=== PATIENT | female | born 1995 | race Caucasian/White ===

== ENCOUNTER 2017-11-14 19:25 | Inpatient (IN) | payer BC ==
[~2017-11-14] VITALS: Ht 154.9 cm; Wt 57.2 kg
[2017-11-14 20:00] VITALS: BP 120/80
[2017-11-14] MEDS ORDERED: LORazepam Inj 2mg/ml 1ml IV ONE ×2 (20:15→22:45)
[2017-11-14 20:41] LABS: BASOPHILS % (AUTO) 0.4 % (0.0-2.0); EOSINOPHILS % (AUTO) 0.3 % (0.0-3.0); HEMATOCRIT 38.3 % (37.0-47.0); LYMPHOCYTES % (AUTO) 18.1 % (20.0-45.0); MEAN CORPUSCULAR VOLUME 91 FL (80-99); MONOCYTES % (AUTO) 4.4 % (1.0-10.0); NEUTROPHILS % (AUTO) 76.8 % (45.0-75.0); PLATELET COUNT 326 K/UL (150-450); RED BLOOD COUNT 4.23 M/UL (4.20-5.40); RED CELL DISTRIBUTION WIDTH 12.2 % (11.6-14.8); WHITE BLOOD COUNT 7.7 K/UL (4.8-10.8)
[2017-11-14 21:00] VITALS: BP 130/80
[2017-11-14 21:04] LABS: ANION GAP 13 mmol/L (5-15); BLOOD UREA NITROGEN 8 mg/dL (7-18); CALCIUM 9.5 MG/DL (8.5-10.1); CARBON DIOXIDE 27 MMOL/L (21-32); CHLORIDE 103 MMOL/L (98-107); CREATININE 0.9 MG/DL (0.55-1.30); POTASSIUM 3.6 MMOL/L (3.5-5.1); SODIUM 143 MMOL/L (136-145)
[2017-11-14 21:08] LABS: ALANINE AMINOTRANSFERASE 19 U/L (12-78); ALBUMIN 4.7 G/DL (3.4-5.0); ALBUMIN/GLOBULIN RATIO 1.4 (1.0-2.7); ALKALINE PHOSPHATASE 81 U/L (46-116); ASPARTATE AMINO TRANSFERASE 26 U/L (15-37); BILIRUBIN,TOTAL 0.4 MG/DL (0.2-1.0)
[2017-11-14 21:13] LABS: APPEARANCE,URINE SLIGHTLY CLOUDY; BILIRUBIN, URINE 1+ (NEGATIVE); GLUCOSE, URINE (UA) NEGATIVE (NEGATIVE); KETONES,URINE 1+ (NEGATIVE); LEUKOCYTE ESTERASE ,URINE 1+ (NEGATIVE); NITRITE,URINE NEGATIVE (NEGATIVE); PH,URINE 7 (4.5-8.0); PROTEIN,URINE 2+ (NEGATIVE); UROBILINOGEN,URINE 1 MG/DL (0.0-1.0)
[2017-11-14 21:14] LABS: COLOR,URINE YELLOW
[2017-11-14] MEDS ORDERED: Haloperidol 5mg/ml Inj IM ONE (21:45)
[2017-11-14 22:00] VITALS: BP 128/88
[2017-11-14 22:30] VITALS: BP 129/87
[2017-11-14] MEDS ORDERED: DiphenhydrAMINE 50mg/ml Inj IVP ONE ×2 (22:30→22:45)
--- NOTE | 2017-11-14 23:07 | Emergency Room Report ---
History of Present Illness General Chief Complaint: General Complaint Source: Patient (Elroy Mares MD) Present Illness HPI Patient is a 22-year-old female presented after increased agitation after having a implant of naltrexone after having been given Suboxone.The patient reports having additionally taking Wellbutrin. The patient was anoted to have initial agitation and the feeling of nausea. The patient was brought in by boyfriend. (Elroy Mares MD) Allergies: Coded Allergies: No Known Allergies (Unverified , 11/14/17) Patient History Past Medical History: see triage record Last Menstrual Period: unknown Reviewed Nursing Documentation: PMH: Agreed; PSxH: Agreed (Elroy Mares MD) Review of Systems All Other Systems: negative except mentioned in HPI (Elroy Mares MD) Physical Exam Vital Signs Date Time Temp Pulse Resp B/P (MAP) Pulse Ox O2 Delivery O2 Flow Rate FiO2 11/14/17 19:29 98.0 139 18 112/75 98 Room Air 98.1 Sp02 EP Interpretation: reviewed, normal General Appearance: normal inspection, moderate distress, other - confused, agitated Head: atraumatic ENT: normal ENT inspection, hearing grossly normal, normal voice Neck: normal inspection, full range of motion, supple, no bony tend Respiratory: normal inspection, lungs clear, normal breath sounds, no respiratory distress, no retraction, no wheezing Cardiovascular #1: regular rate, rhythm, no edema Gastrointestinal: normal inspection, normal bowel sounds, non tender, soft, no guarding, no hernia Genitourinary: no CVA tenderness Musculoskeletal: normal inspection, back normal, normal range of motion Neurologic: normal inspection, alert, responsive, television technician III-XII nml as tested, motor strength/tone normal, other - yawning, gooseflesh, dilated pupils Psychiatric: normal inspection, judgement/insight normal, mood/affect normal Skin: normal inspection, normal color, no rash (Elroy Mares MD) Medical Decision Making Restraint Attestation I, Elroy Mares MD, have personally evaluated this patient. Laboratory tests have been reviewed and addressed accordingly. The patient is deemed to present a danger to themselves and/or others. This is based on the exam, history ( provided by patient, EMS/[facility] and/or family) and observed or reported behavior. Attempts for non-invasive measures have been considered and/or attempted, however, have been futile. It is in the best interest of the nursing staff, the patient, and others involved in this patient's care that behavioral restraints be applied. Patient evaluation reveals the following: The patient thrashing in bed and trying to stand up on top of gurney (Elroy Mares MD) Restraint Attestation I, Davion Bazzi MD, have personally evaluated this patient. Laboratory tests have been reviewed and addressed accordingly. The patient is deemed to present a danger to themselves and/or others. This is based on the exam, history ( provided by patient, EMS/[facility] and/or family) and observed or reported behavior. Attempts for non-invasive measures have been considered and/or attempted, however, have been futile. It is in the best interest of the nursing staff, the patient, and others involved in this patient's care that behavioral restraints be applied. Patient evaluation reveals the following: still agitated, pulling off lines. trying to get out of bed. Behavioral: Other - agitation Reaction to Intervention: Improved (DAVION BAZZI M.D.) Medical: Substance Abuse Behavioral: Other - psychosis Restraint Reassesment I, Mil Messina MD, have personally evaluated this patient. Laboratory tests have been reviewed and addressed accordingly. The patient is deemed to present a danger to themselves and/or others. This is based on the exam, history ( provided by patient, EMS/[facility] and/or family) and observed or reported behavior. Attempts for non-invasive measures have been considered and/or attempted, however, have been futile. It is in the best interest of the nursing staff, the patient, and others involved in this patient's care that behavioral restraints be applied. Patient evaluation reveals the following: psychosis, not responding to external commands/stimuli. She tore through non-behavioral restraints. (Mil Messina M.D.) Diagnostic Impression: Primary Impression: Opiate withdrawal Additional Impressions: Akathisia Psychosis Qualified Codes: F23 - Brief psychotic disorder Rhabdomyolysis Qualified Codes: M62.82 - Rhabdomyolysis Adverse reaction to naltrexone implant ER Course Patient presented for altered mental status. Differential diagnoses include substance abuse, psychosis, bipolar disorder, depression, malingering. Because of complexity of patient's case laboratory testing and imaging studies were ordered.The patient was given Ativan and Haldol and Benadryl after the continued agitation. The patient was placed in restraints. Patient was endorsed to Dr. Bazzi. The patient will likely be discharged after medication wears off. Labs Test 11/14/17 19:50 11/14/17 20:46 White Blood Count 7.7 K/UL (4.8-10.8) Red Blood Count 4.23 M/UL (4.20-5.40) Hemoglobin 13.0 G/DL (12.0-16.0) Hematocrit 38.3 % (37.0-47.0) Mean Corpuscular Volume 91 FL (80-99) Mean Corpuscular Hemoglobin 30.8 PG (27.0-31.0) Mean Corpuscular Hemoglobin Concent 34.0 G/DL (32.0-36.0) Red Cell Distribution Width 12.2 % (11.6-14.8) Platelet Count 326 K/UL (150-450) Mean Platelet Volume 6.8 FL (6.5-10.1) Neutrophils (%) (Auto) 76.8 % (45.0-75.0) Lymphocytes (%) (Auto) 18.1 % (20.0-45.0) Monocytes (%) (Auto) 4.4 % (1.0-10.0) Eosinophils (%) (Auto) 0.3 % (0.0-3.0) Basophils (%) (Auto) 0.4 % (0.0-2.0) Sodium Level 143 MMOL/L (136-145) Potassium Level 3.6 MMOL/L (3.5-5.1) Chloride Level 103 MMOL/L (98-107) Carbon Dioxide Level 27 MMOL/L (21-32) Anion Gap 13 mmol/L (5-15) Blood Urea Nitrogen 8 mg/dL (7-18) Creatinine 0.9 MG/DL (0.55-1.30) Estimat Glomerular Filtration Rate > 60 mL/min (>60) Glucose Level 101 MG/DL (74-106) Calcium Level 9.5 MG/DL (8.5-10.1) Total Bilirubin 0.4 MG/DL (0.2-1.0) Aspartate Amino Transf (AST/SGOT) 26 U/L (15-37) Alanine Aminotransferase (ALT/SGPT) 19 U/L (12-78) Alkaline Phosphatase 81 U/L (46-116) Total Protein 8.1 G/DL (6.4-8.2) Albumin 4.7 G/DL (3.4-5.0) Globulin 3.4 g/dL Albumin/Globulin Ratio 1.4 (1.0-2.7) Urine Color Yellow Urine Appearance Slightly cloudy Urine pH 7 (4.5-8.0) Urine Specific [place] 1.010 (1.005-1.035) Urine Protein 2+ (NEGATIVE) Urine Glucose (UA) Negative (NEGATIVE) Urine Ketones 1+ (NEGATIVE) Urine Occult Blood 1+ (NEGATIVE) Urine Nitrite Negative (NEGATIVE) Urine Bilirubin 1+ (NEGATIVE) Urine Ictotest Negative Urine Urobilinogen 1 MG/DL (0.0-1.0) Urine Leukocyte Esterase 1+ (NEGATIVE) Urine RBC 0-2 /HPF (0 - 2) Urine WBC 2-4 /HPF (0 - 2) Urine Squamous Epithelial Cells Many /LPF (NONE/OCC) Urine Bacteria Few /HPF (NONE) Urine HCG, Qualitative Negative (NEGATIVE) (Elroy Mares MD) ER Course Patient signout to me. She had naltrexone implant and became very agitated. She required multiple rounds of medication for agitation. Had to be restrained because of her agitation and try to get out of bed. Has been several hours now and she still only slowly improving. Will continue with current therapy and observation. Will sign out to the next oncoming doctor. (DAVION BAZZI M.D.) ER Course Please see above notes. Patient is still psychotic and responding to internal stimuli. She still somewhat agitated after multiple doses of Ativan. Dr. Bazzi prescribed a morphine recently. Because of the ongoing psychosis the patient will be admitted to intensive care unit. She is still tachycardic and will continue to receive IV hydration. Repeating labs, CXR ordered, CT head ordered. Labs with elevated CK. Bicarb added to IV. Patient able to come out of restraints after versed given for CT (had also received Morphine). CXR clear. CT no lesions. Ambulatory. C/O leg pain. (Has rhabdo). Morphine ordered. Seen by Dr. Charles in ED. After transient improvement, return of abnormal mentation and exaggerated arm and leg movements. Dr. Mares removed Naltrexone implant. Improved but serious. Laboratory Tests Test 11/14/17 19:50 11/14/17 20:46 11/15/17 07:20 11/15/17 10:26 White Blood Count 7.7 K/UL (4.8-10.8) 12.1 K/UL (4.8-10.8) #H Red Blood Count 4.23 M/UL (4.20-5.40) 3.94 M/UL (4.20-5.40) L Hemoglobin 13.0 G/DL (12.0-16.0) 12.3 G/DL (12.0-16.0) Hematocrit 38.3 % (37.0-47.0) 35.8 % (37.0-47.0) L Mean Corpuscular Volume 91 FL (80-99) 91 FL (80-99) Mean Corpuscular Hemoglobin 30.8 PG (27.0-31.0) 31.2 PG (27.0-31.0) H Mean Corpuscular Hemoglobin Concent 34.0 G/DL (32.0-36.0) 34.3 G/DL (32.0-36.0) Red Cell Distribution Width 12.2 % (11.6-14.8) 11.9 % (11.6-14.8) Platelet Count 326 K/UL (150-450) 310 K/UL (150-450) Mean Platelet Volume 6.8 FL (6.5-10.1) 7.2 FL (6.5-10.1) Neutrophils (%) (Auto) 76.8 % (45.0-75.0) H % (45.0-75.0) Lymphocytes (%) (Auto) 18.1 % (20.0-45.0) L % (20.0-45.0) Monocytes (%) (Auto) 4.4 % (1.0-10.0) % (1.0-10.0) Eosinophils (%) (Auto) 0.3 % (0.0-3.0) % (0.0-3.0) Basophils (%) (Auto) 0.4 % (0.0-2.0) % (0.0-2.0) Sodium Level 143 MMOL/L (136-145) 143 MMOL/L (136-145) Potassium Level 3.6 MMOL/L (3.5-5.1) 3.9 MMOL/L (3.5-5.1) Chloride Level 103 MMOL/L (98-107) 108 MMOL/L (98-107) H Carbon Dioxide Level 27 MMOL/L (21-32) 24 MMOL/L (21-32) Anion Gap 13 mmol/L (5-15) 11 mmol/L (5-15) Blood Urea Nitrogen 8 mg/dL (7-18) 9 mg/dL (7-18) Creatinine 0.9 MG/DL (0.55-1.30) 0.9 MG/DL (0.55-1.30) Estimate Glomerular Filtration Rate > 60 mL/min (>60) > 60 mL/min (>60) Glucose Level 101 MG/DL (74-106) 86 MG/DL (74-106) Calcium Level 9.5 MG/DL (8.5-10.1) 7.8 MG/DL (8.5-10.1) L Total Bilirubin 0.4 MG/DL (0.2-1.0) 0.5 MG/DL (0.2-1.0) Aspartate Amino Transferase (AST) 26 U/L (15-37) 200 U/L (15-37) H Alanine Aminotransferase (ALT) 19 U/L (12-78) 54 U/L (12-78) Alkaline Phosphatase 81 U/L (46-116) 67 U/L (46-116) Total Protein 8.1 G/DL (6.4-8.2) 6.5 G/DL (6.4-8.2) Albumin 4.7 G/DL (3.4-5.0) 3.6 G/DL (3.4-5.0) Globulin 3.4 g/dL 2.9 g/dL Albumin/Globulin Ratio 1.4 (1.0-2.7) 1.2 (1.0-2.7) Urine Color Yellow Urine Appearance Slightly cloudy Urine pH 7 (4.5-8.0) Urine Specific [place] 1.010 (1.005-1.035) Urine Protein 2+ (NEGATIVE) H Urine Glucose (UA) Negative (NEGATIVE) Urine Ketones 1+ (NEGATIVE) H Urine Occult Blood 1+ (NEGATIVE) H Urine Nitrite Negative (NEGATIVE) Urine Bilirubin 1+ (NEGATIVE) H Urine Ictotest Negative Urine Urobilinogen 1 MG/DL (0.0-1.0) H Urine Leukocyte Esterase 1+ (NEGATIVE) H Urine RBC 0-2 /HPF (0 - 2) Urine WBC 2-4 /HPF (0 - 2) Urine Squamous Epithelial Cells Many /LPF (NONE/OCC) H Urine Bacteria Few /HPF (NONE) Urine HCG, Qualitative Negative (NEGATIVE) Urine Opiates Screen Negative (NEGATIVE) Urine Barbiturates Screen Negative (NEGATIVE) Phencyclidine (PCP) Screen Negative (NEGATIVE) Urine Amphetamines Screen Negative (NEGATIVE) Urine Benzodiazepines Screen Negative (NEGATIVE) Urine Cocaine Screen Negative (NEGATIVE) Urine Marijuana (THC) Screen Positive (NEGATIVE) H Differential Total Cells Counted 100 Neutrophils % (Manual) 87 % (45-75) H Lymphocytes % (Manual) 9 % (20-45) L Monocytes % (Manual) 4 % (1-10) Eosinophils % (Manual) 0 % (0-3) Basophils % (Manual) 0 % (0-2) Band Neutrophils 0 % (0-8) Platelet Estimate Adequate Platelet Morphology Normal Red Blood Cell Morphology Normal Lactic Acid Level 2.90 mmol/L (0.4-2.0) H 2.10 mmol/L (0.66-2.22) Total Creatine Kinase > 83237 U/L (26-308) H Troponin I 0.017 ng/mL (0.000-0.056) Thyroid Stimulating Hormone (TSH) 1.091 uiU/mL (0.358-3.740) (Mil Messina M.D.) EKG Diagnostic Results Rate: tachycardiac ST Segments: no acute changes (Mil Messina M.D.) Rhythm Strip Diag. Results EP Interpretation: yes Rhythm: no PVC's, no ectopy, other - Sinus tachycardia (Mil Messina M.D.) Chest X-Ray Diagnostic Results Chest X-Ray Diagnostic Results : Chest X-Ray Ordered: Yes # of Views/Limited/Complete: 1 View Indication: Other EP Interpretation: Yes Interpretation: no consolidation, no effusion, no pneumothorax Impression: No acute disease Electronically Signed by: Electronically signed by Mil Messina MD (Mil Messina M.D.) Last Vital Signs Date Time Temp Pulse Resp B/P (MAP) Pulse Ox O2 Delivery O2 Flow Rate FiO2 11/14/17 20:00 99.4 100 22 120/80 64 Room Air 99.4 Status: improved (Elroy Mares MD) Last Vital Signs Date Time Temp Pulse Resp B/P (MAP) Pulse Ox O2 Delivery O2 Flow Rate FiO2 11/15/17 11:00 97 22 101/57 97 Room Air 11/15/17 10:30 98.5 Status: improved (Mil Messina M.D.) Disposition: ADMITTED INPATIENT Condition: Serious Referrals: NON PHYSICIAN (PCP) Elroy Mares MD Nov 14, 2017 23:07 DAVION BAZZI M.D. Nov 15, 2017 05:01 Mil Messina M.D. Nov 15, 2017 07:01
[2017-11-15] VITALS (24 sets, daily range): BP systolic 97–145; BP diastolic 52–89
[2017-11-15] MEDS ORDERED: LORazepam Inj 2mg/ml 1ml IV ONE ×2 (02:15→06:30)
[2017-11-15] MEDS ORDERED: Haloperidol 5mg/ml Inj IM ONE (04:00)
[2017-11-15] MEDS ORDERED: SERTRALINE HCL100 MG PO (05:28)
[2017-11-15] MEDS ORDERED: WELLBUTRIN SR100 MG ORAL (05:28)
[2017-11-15] MEDS ORDERED: DOXEPIN HCL25 MG ORAL (05:30)
[2017-11-15] MEDS ORDERED: GABAPENTIN100 MG ORAL (05:30)
[2017-11-15] MEDS ORDERED: SUBOXONE 12 MG1 EACH SL (05:30)
[2017-11-15] MEDS ORDERED: NALTREXONE HCL5 GM MC (05:31)
[2017-11-15] MEDS ORDERED: LAMICTAL25 M1 PO (05:31)
[2017-11-15] MEDS ORDERED: Morphine Sulfate 4mg/ml Inj (IV USE ONLY) IVP ONE (06:45)
[2017-11-15 07:37] LABS: HEMATOCRIT 35.8 % (37.0-47.0); HEMOGLOBIN 12.3 G/DL (12.0-16.0); MEAN CORPUSCULAR VOLUME 91 FL (80-99); PLATELET COUNT 310 K/UL (150-450); RED BLOOD COUNT 3.94 M/UL (4.20-5.40); RED CELL DISTRIBUTION WIDTH 11.9 % (11.6-14.8); WHITE BLOOD COUNT 12.1 K/UL (4.8-10.8)
[2017-11-15 07:51] LABS: ANION GAP 11 mmol/L (5-15); BLOOD UREA NITROGEN 9 mg/dL (7-18); CALCIUM 7.8 MG/DL (8.5-10.1); CARBON DIOXIDE 24 MMOL/L (21-32); CHLORIDE 108 MMOL/L (98-107); CREATININE 0.9 MG/DL (0.55-1.30); POTASSIUM 3.9 MMOL/L (3.5-5.1); SODIUM 143 MMOL/L (136-145)
[2017-11-15] MEDS ORDERED: Midazolam 2mg/2ml Inj IVP ONE (08:00)
[2017-11-15 08:09] LABS: ALANINE AMINOTRANSFERASE 54 U/L (12-78); ALBUMIN 3.6 G/DL (3.4-5.0); ALBUMIN/GLOBULIN RATIO 1.2 (1.0-2.7); ALKALINE PHOSPHATASE 67 U/L (46-116); ASPARTATE AMINO TRANSFERASE 200 U/L (15-37); BILIRUBIN,TOTAL 0.5 MG/DL (0.2-1.0); CREATINE KINASE > 10000 U/L (26-308)
[2017-11-15] MEDS: Sodium Bicarbonate 150 ML in D5W 1000ml 1,000 ML IV SCH ×3 (09:15→17:41)
--- NOTE | 2017-11-15 09:59 | Diagnostic Imaging Report ---
EXAM: CT Head Without Intravenous Contrast CLINICAL HISTORY: ALOC TECHNIQUE: Axial computed tomography images of the head/brain without intravenous contrast. One or more of the following dose reduction techniques were used: automated exposure control, adjustment of the mA and/or kV according to patient size, use of iterative reconstruction technique. CT DI 70.38 DLP 1312 COMPARISON: No relevant prior studies available. FINDINGS: Brain: Unremarkable. No hemorrhage. No significant white matter disease. No edema. Ventricles: Unremarkable. No ventriculomegaly. Bones/joints: Unremarkable. No acute fracture. Soft tissues: Unremarkable. Sinuses: Unremarkable as visualized. No acute sinusitis. Mastoid air cells: Unremarkable as visualized. No mastoid effusion. IMPRESSION: No acute findings.
--- NOTE | 2017-11-15 12:08 | History & Physical ---
History and Physical History & Physicial seen and examined. Full Dictation in progress Josefina Duke MD Nov 15, 2017 12:08
--- NOTE | 2017-11-15 13:26 | Infectious Diseases Prog Note ---
Assessment/Plan Problems: (1) UTI (urinary tract infection) Assessment & Plan: will send urine culture and start ceftriaxon empirically (2) Leukocytosis Assessment & Plan: due to UTI and dehydration, rule out sepsis , will send blood culture and obtain CXR to rule out pneumonia , will start iv ceftriaxon empirically (3) Fever Assessment & Plan: will order blood culture and CXR to rule out pneumonia , continue tylenol (4) Rhabdomyolysis Assessment & Plan: with elevated CK, continue hydration and monitor CK level (5) Psychosis Assessment & Plan: continue psych meds , consult psychiatrist (6) Opiate withdrawal Assessment & Plan: with agitation , monitor in ICU . Subjective Allergies: Coded Allergies: No Known Allergies (Unverified , 11/14/17) Objective Vital Signs Last 24 Hour Vital Signs Date Time Temp Pulse Resp B/P (MAP) Pulse Ox O2 Delivery O2 Flow Rate FiO2 11/15/17 11:00 97 22 101/57 97 Room Air 11/15/17 10:30 98.5 104 22 97 Room Air 11/15/17 10:15 98.5 102 22 98 Room Air 11/15/17 10:00 98.5 99 22 99 Room Air 11/15/17 09:45 98.6 102 22 99 Room Air 11/15/17 09:30 98.6 103 22 99 Room Air 11/15/17 09:15 98.6 106 22 98 Room Air 11/15/17 09:00 98.6 105 22 100 Room Air 11/15/17 09:00 106 22 101/60 100 Room Air 11/15/17 08:45 98.6 105 22 100 Room Air 11/15/17 08:30 98.6 120 22 100 Room Air 11/15/17 08:15 98.4 108 22 100 Room Air 11/15/17 08:00 98.4 103 22 100 Room Air 11/15/17 07:45 98.4 100 28 99 Room Air 11/15/17 07:22 98.4 11/15/17 06:53 106 28 121/68 96 Room Air 11/15/17 06:52 98.4 11/15/17 05:21 98.4 138 26 124/76 98 Room Air 98.4 11/15/17 04:18 100 22 101/68 96 Room Air 11/15/17 02:12 98.9 100 20 124/80 97 Room Air 98.9 7/8/18 00:07 99.0 108 20 135/82 96 Room Air 99.0 11/14/17 22:30 98.7 109 20 129/87 97 Room Air 98.7 11/14/17 22:00 98.9 106 20 128/88 97 Room Air 98.9 11/14/17 21:00 99.0 108 20 130/80 96 Room Air 99.0 11/14/17 20:00 99.4 100 22 120/80 64 Room Air 99.4 11/14/17 19:29 98.0 139 18 112/75 98 Room Air 98.1 Height (Feet): 5 Height (Inches): 3.00 Weight (Pounds): 120 Laboratory Tests Test 11/14/17 19:50 11/14/17 20:46 11/15/17 07:20 11/15/17 10:26 White Blood Count 7.7 K/UL (4.8-10.8) 12.1 K/UL (4.8-10.8) #H Red Blood Count 4.23 M/UL (4.20-5.40) 3.94 M/UL (4.20-5.40) L Hemoglobin 13.0 G/DL (12.0-16.0) 12.3 G/DL (12.0-16.0) Hematocrit 38.3 % (37.0-47.0) 35.8 % (37.0-47.0) L Mean Corpuscular Volume 91 FL (80-99) 91 FL (80-99) Mean Corpuscular Hemoglobin 30.8 PG (27.0-31.0) 31.2 PG (27.0-31.0) H Mean Corpuscular Hemoglobin Concent 34.0 G/DL (32.0-36.0) 34.3 G/DL (32.0-36.0) Red Cell Distribution Width 12.2 % (11.6-14.8) 11.9 % (11.6-14.8) Platelet Count 326 K/UL (150-450) 310 K/UL (150-450) Mean Platelet Volume 6.8 FL (6.5-10.1) 7.2 FL (6.5-10.1) Neutrophils (%) (Auto) 76.8 % (45.0-75.0) H % (45.0-75.0) Lymphocytes (%) (Auto) 18.1 % (20.0-45.0) L % (20.0-45.0) Monocytes (%) (Auto) 4.4 % (1.0-10.0) % (1.0-10.0) Eosinophils (%) (Auto) 0.3 % (0.0-3.0) % (0.0-3.0) Basophils (%) (Auto) 0.4 % (0.0-2.0) % (0.0-2.0) Sodium Level 143 MMOL/L (136-145) 143 MMOL/L (136-145) Potassium Level 3.6 MMOL/L (3.5-5.1) 3.9 MMOL/L (3.5-5.1) Chloride Level 103 MMOL/L (98-107) 108 MMOL/L (98-107) H Carbon Dioxide Level 27 MMOL/L (21-32) 24 MMOL/L (21-32) Anion Gap 13 mmol/L (5-15) 11 mmol/L (5-15) Blood Urea Nitrogen 8 mg/dL (7-18) 9 mg/dL (7-18) Creatinine 0.9 MG/DL (0.55-1.30) 0.9 MG/DL (0.55-1.30) Estimat Glomerular Filtration Rate > 60 mL/min (>60) > 60 mL/min (>60) Glucose Level 101 MG/DL (74-106) 86 MG/DL (74-106) Calcium Level 9.5 MG/DL (8.5-10.1) 7.8 MG/DL (8.5-10.1) L Total Bilirubin 0.4 MG/DL (0.2-1.0) 0.5 MG/DL (0.2-1.0) Aspartate Amino Transf (AST/SGOT) 26 U/L (15-37) 200 U/L (15-37) H Alanine Aminotransferase (ALT/SGPT) 19 U/L (12-78) 54 U/L (12-78) Alkaline Phosphatase 81 U/L (46-116) 67 U/L (46-116) Total Protein 8.1 G/DL (6.4-8.2) 6.5 G/DL (6.4-8.2) Albumin 4.7 G/DL (3.4-5.0) 3.6 G/DL (3.4-5.0) Globulin 3.4 g/dL 2.9 g/dL Albumin/Globulin Ratio 1.4 (1.0-2.7) 1.2 (1.0-2.7) Urine Color Yellow Urine Appearance Slightly cloudy Urine pH 7 (4.5-8.0) Urine Specific [place] 1.010 (1.005-1.035) Urine Protein 2+ (NEGATIVE) H Urine Glucose (UA) Negative (NEGATIVE) Urine Ketones 1+ (NEGATIVE) H Urine Occult Blood 1+ (NEGATIVE) H Urine Nitrite Negative (NEGATIVE) Urine Bilirubin 1+ (NEGATIVE) H Urine Ictotest Negative Urine Urobilinogen 1 MG/DL (0.0-1.0) H Urine Leukocyte Esterase 1+ (NEGATIVE) H Urine RBC 0-2 /HPF (0 - 2) Urine WBC 2-4 /HPF (0 - 2) Urine Squamous Epithelial Cells Many /LPF (NONE/OCC) H Urine Bacteria Few /HPF (NONE) Urine HCG, Qualitative Negative (NEGATIVE) Urine Opiates Screen Negative (NEGATIVE) Urine Barbiturates Screen Negative (NEGATIVE) Phencyclidine (PCP) Screen Negative (NEGATIVE) Urine Amphetamines Screen Negative (NEGATIVE) Urine Benzodiazepines Screen Negative (NEGATIVE) Urine Cocaine Screen Negative (NEGATIVE) Urine Marijuana (THC) Screen Positive (NEGATIVE) H Differential Total Cells Counted 100 Neutrophils % (Manual) 87 % (45-75) H Lymphocytes % (Manual) 9 % (20-45) L Monocytes % (Manual) 4 % (1-10) Eosinophils % (Manual) 0 % (0-3) Basophils % (Manual) 0 % (0-2) Band Neutrophils 0 % (0-8) Platelet Estimate Adequate Platelet Morphology Normal Red Blood Cell Morphology Normal Lactic Acid Level 2.90 mmol/L (0.4-2.0) H 2.10 mmol/L (0.66-2.22) Total Creatine Kinase > 87606 U/L (26-308) H Troponin I 0.017 ng/mL (0.000-0.056) Thyroid Stimulating Hormone (TSH) 1.091 uiU/mL (0.358-3.740) Current Medications Medications (Trade) Dose Ordered Sig/Scar Route PRN Reason Start Time Stop Time Status Last Admin Dose Admin Sodium Bicarbonate 150 ml/Dextrose 1,150 ml @ 200 mls/hr Q5H45M IV 11/15/17 08:30 12/15/17 08:29 11/15/17 09:15 Sodium Chloride 1,000 ml @ 300 mls/hr Q3H20M IV 11/15/17 09:15 12/15/17 09:14 11/15/17 09:15 Maynor Charles M.D. Nov 15, 2017 13:26
[2017-11-15] MEDS: cefTRIAXone 1 GM in D5W 110 ML IVPB SCH (14:26)
[2017-11-15] MEDS ORDERED: Morphine Sulfate 4mg/ml Inj (IV USE ONLY) IVP PRN (14:45)
--- NOTE | 2017-11-15 15:11 | Emergency Room Report ---
History of Present Illness General Chief Complaint: General Complaint Source: Patient Present Illness Allergies: Coded Allergies: No Known Allergies (Unverified , 11/14/17) Patient History Last Menstrual Period: unknown Physical Exam Vital Signs Date Time Temp Pulse Resp B/P (MAP) Pulse Ox O2 Delivery O2 Flow Rate FiO2 11/14/17 19:29 98.0 139 18 112/75 98 Room Air 98.1 Medical Decision Making Diagnostic Impression: Primary Impression: Opiate withdrawal Additional Impressions: Akathisia Psychosis Qualified Codes: F23 - Brief psychotic disorder Rhabdomyolysis Qualified Codes: M62.82 - Rhabdomyolysis ER Course The patient was noted to be markedly agitated. The patient was consented for naltrexone implant removal. I discussed this with the patient surgeon as well as the the pain management physician. And they agreed with removal. The implant was removed after the stitch was removed from prior procedure. I anesthesia was with 3 mL of lidocaine with epinephrine. Prepped with chlorhexidine. The implant was removed with Shara. The wound was subsequently irrigated with saline. The area was sutured with interrupted absorbable gut suture 2 Last Vital Signs Date Time Temp Pulse Resp B/P (MAP) Pulse Ox O2 Delivery O2 Flow Rate FiO2 11/15/17 14:51 98.5 11/15/17 13:00 100 22 113/57 97 Room Air Status: unchanged Disposition: ADMITTED INPATIENT Condition: Serious Referrals: NON PHYSICIAN (PCP) Elroy Mares MD Nov 15, 2017 15:11
[2017-11-15] MEDS ORDERED: Haloperidol 5mg/ml Inj IM PRN (15:45)
[2017-11-15] MEDS: Morphine Sulfate 4mg/ml Inj (IV USE ONLY) IVP PRN (17:41)
--- NOTE | 2017-11-15 19:45 | Consultation ---
DATE OF CONSULTATION: 11/15/2017 INFECTIOUS DISEASE CONSULTATION CONSULTING PHYSICIAN: Maynor Charles M.D. REQUESTING PHYSICIAN: Josefina Duke M.D. REASON FOR CONSULTATION: Leukocytosis, rule out sepsis and UTI. Recommendation for antibiotics treatment. HISTORY OF PRESENT ILLNESS: The patient is a 22-year-old, female with past medical history of narcotic abuse, who has been on Suboxone for the last 2 weeks. She received naltrexone implants in her lower abdomen yesterday as per her boyfriend and the patient developed agitation with nausea. The patient became restless with akathisia, so she was brought into the emergency room by her boyfriend for further evaluation and management. The patient had temperature of 98.1 degrees with pulse of 139 and saturation of 98% on room air. Urinalysis showed evidence of infection with positive leukocyte esterase. CBC showed evidence of leukocytosis, so Infectious Disease consultation was requested to rule out infectious etiology and for antibiotics management of her UTI. As of note, the patient agitated, restless in bed, cannot provide any history at this point. History was mainly obtained from the boyfriend at the bedside and the medical record. REVIEW OF SYSTEMS: Unable to obtain. The patient is agitated and restless, could not provide good history. PAST MEDICAL HISTORY: Significant for narcotic abuse and heroin abuse. PAST SURGICAL HISTORY: The patient had naltrexone implant in her lower abdomen yesterday. FAMILY HISTORY: Unable to obtain. SOCIAL HISTORY: The patient lives with her boyfriend. Currently, unemployed. She used heroin in the past and narcotics, but not recently. Unclear whether she was drinking alcohol or not or used other drugs. ALLERGIES: She has no known drug allergy. MEDICATIONS: The patient was given lorazepam, haloperidol, Benadryl, Ativan and Versed. LABORATORY AND DIAGNOSTIC DATA: Labs showed white count of 12.1, hemoglobin of 12.3 and platelet count of 310. BUN of 9 and creatinine of 0.9. AST of 200 and ALT of 54. CK more than 10,000. Toxicology screening was positive for marijuana. Urinalysis showed +1 leukocyte esterase, many squamous cells and few bacteria. Imaging, head CT scan showed no acute findings. PHYSICAL EXAMINATION: VITAL SIGNS: Temperature 98.5 degrees, pulse 104, respirations 22, blood pressure 101/57 and saturation 97% on room air. GENERAL: Young female lying in bed, agitated and restless, unresponsive, not cooperative for exam. HEENT: Normocephalic and atraumatic. Pupil sluggish to light. Unable to assess oral mucosa. NECK: Supple. No lymphadenopathy. CARDIOVASCULAR: She is tachycardic. S1 and S2 heard. No murmur. LUNGS: She had diminished breathing sounds at the bases. Normal breathing effort. No wheezing or rhonchi. ABDOMEN: Soft, nontender, and nondistended. Normal bowel sounds. Lower abdomen surgical incision in place with intact wound. No dehiscence. No drainage. No significant erythema or pus. EXTREMITY: No edema. No cyanosis. ASSESSMENT AND RECOMMENDATION: 1. UTI. We will send urine culture and start ceftriaxone empiric treatment. 2. Leukocytosis due to UTI and possibly dehydration, rule out sepsis. We will send blood culture and obtain chest x-ray to rule out pneumonia. We will start IV ceftriaxone empirically for now. We will monitor laboratories closely. 3. Fever due to the above. We will order blood culture, and chest x-ray to rule out pneumonia. Continue Tylenol. 4. Rhabdomyolysis due to agitation and muscle straining with elevated CK level. Continue hydration and monitor CK level. 5. Psychosis. Continue psychiatric medications. Consult psychiatrist. 6. Opiate withdrawal with agitation. Monitor in ICU. Consult psychiatric. Thank you for the consult. Infectious Disease will continue to follow. Please feel free to call with any question. Maynor Charles M.D. DR: MINAL JOB#: [id number] CC:
[2017-11-15] MEDS: DiphenhydrAMINE 50mg/ml Inj IVP PRN (20:35)
[2017-11-15] MEDS: Heparin 5000 units/ml inj SUBQ SCH (20:38)
[2017-11-16] VITALS: BP 119/65
[2017-11-16] MEDS: LORazepam Inj 2mg/ml 1ml IV PRN ×3 (00:23→20:10)
[2017-11-16] MEDS: Sodium Bicarbonate 150 ML in D5W 1000ml 1,000 ML IV SCH ×5 (01:02→23:10)
[2017-11-16 04:00] VITALS: BP 111/65
[2017-11-16] MEDS: Morphine Sulfate 4mg/ml Inj (IV USE ONLY) IVP PRN ×2 (06:28→16:09)
[2017-11-16 08:00] VITALS: BP 129/79
[2017-11-16] MEDS: Heparin 5000 units/ml inj SUBQ SCH ×2 (08:25→20:59)
[2017-11-16 10:10] LABS: BASOPHILS % (AUTO) 0.6 % (0.0-2.0); EOSINOPHILS % (AUTO) 0.1 % (0.0-3.0); HEMATOCRIT 35.8 % (37.0-47.0); HEMOGLOBIN 11.8 G/DL (12.0-16.0); LYMPHOCYTES % (AUTO) 31.3 % (20.0-45.0); MEAN CORPUSCULAR VOLUME 91 FL (80-99); MONOCYTES % (AUTO) 7.5 % (1.0-10.0); NEUTROPHILS % (AUTO) 60.5 % (45.0-75.0); PLATELET COUNT 275 K/UL (150-450); RED BLOOD COUNT 3.93 M/UL (4.20-5.40); RED CELL DISTRIBUTION WIDTH 12.3 % (11.6-14.8); WHITE BLOOD COUNT 5.3 K/UL (4.8-10.8)
[2017-11-16 10:36] LABS: ALANINE AMINOTRANSFERASE 87 U/L (12-78); ALBUMIN 3.6 G/DL (3.4-5.0); ALBUMIN/GLOBULIN RATIO 1.2 (1.0-2.7); ALKALINE PHOSPHATASE 63 U/L (46-116); ANION GAP 6 mmol/L (5-15); ASPARTATE AMINO TRANSFERASE 235 U/L (15-37); BILIRUBIN,TOTAL 0.3 MG/DL (0.2-1.0); BLOOD UREA NITROGEN 3 mg/dL (7-18); CALCIUM 8.4 MG/DL (8.5-10.1); CARBON DIOXIDE 28 MMOL/L (21-32); CHLORIDE 107 MMOL/L (98-107); CREATININE 0.6 MG/DL (0.55-1.30); POTASSIUM 2.9 MMOL/L (3.5-5.1); SODIUM 141 MMOL/L (136-145)
--- NOTE | 2017-11-16 10:57 | History & Physical ---
History and Physical History & Physicial HISTORY OF PRESENT ILLNESS: The patient is a 22-year-old, female with past medical history of narcotic abuse, who has been on Suboxone for the last 2 weeks. She received naltrexone implants in her lower abdomen yesterday as per her boyfriend and the patient developed agitation with nausea. The patient became restless with akathisia, so she was brought into the emergency room by her boyfriend for further evaluation and management. The patient had temperature of 98.1 degrees with pulse of 139 and saturation of 98% on room air. Urinalysis showed evidence of infection with positive leukocyte esterase. CBC showed evidence of leukocytosis, so Infectious Disease consultation was requested to rule out infectious etiology and for antibiotics management of her UTI. As of note, the patient agitated, restless in bed, cannot provide any history at this point. History was mainly obtained from the boyfriend at the bedside and the medical record. REVIEW OF SYSTEMS: Unable to obtain. The patient is agitated and restless, could not provide good history. PAST MEDICAL HISTORY: Significant for narcotic abuse and heroin abuse. PAST SURGICAL HISTORY: The patient had naltrexone implant in her lower abdomen . FAMILY HISTORY: Unable to obtain. SOCIAL HISTORY: The patient lives with her boyfriend. Currently, unemployed. She used heroin in the past and narcotics, but not recently. Unclear whether she was drinking alcohol or not or used other drugs. ALLERGIES: She has no known drug allergy. MEDICATIONS: The patient was given lorazepam, haloperidol, Benadryl, Ativan and Versed. LABORATORY AND DIAGNOSTIC DATA: Labs showed white count of 12.1, hemoglobin of 12.3 and platelet count of 310. BUN of 9 and creatinine of 0.9. AST of 200 and ALT of 54. CK more than 10,000. Toxicology screening was positive for marijuana. Urinalysis showed +1 leukocyte esterase, many squamous cells and few bacteria. Imaging, head CT scan showed no acute findings. PHYSICAL EXAMINATION: VITAL SIGNS: Temperature 98.5 degrees, pulse 104, respirations 22, blood pressure 120/57 and saturation 97% on room air. GENERAL: Young female lying in bed, agitated and restless, unresponsive, not cooperative for exam. HEENT: Normocephalic and atraumatic. Pupil sluggish to light. Unable to assess oral mucosa. NECK: Supple. No lymphadenopathy. CARDIOVASCULAR: She is tachycardic. S1 and S2 heard. No murmur. LUNGS: She had diminished breathing sounds at the bases. Normal breathing effort. No wheezing or rhonchi. ABDOMEN: Soft, nontender, and nondistended. Normal bowel sounds. Lower abdomen surgical incision in place with intact wound. No dehiscence. No drainage. No significant erythema or pus. EXTREMITY: No edema. No cyanosis. ASSESSMENT AND RECOMMENDATION: 1. Acute Encephalopathy: secondary to withdrawal 2- Substance Abuse, currently on rehab program\ 3. UTI. We will send urine culture and start ceftriaxone empiric treatment. 2. Leukocytosis due to UTI and possibly dehydration, rule out sepsis. We will send blood culture and obtain chest x-ray to rule out pneumonia. We will start IV ceftriaxone empirically for now. We will monitor laboratories closely. 4. Rhabdomyolysis due to agitation and muscle straining with elevated CK level. Continue hydration and monitor CK level. 5. Psychosis. Continue psychiatric medications. Plan: Agree with Step Down admission . ID, Nephrology notified Comment: time of this documentation. doesn't reflect actual time of encounter Josefina Duke MD Nov 16, 2017 10:57
--- NOTE | 2017-11-16 10:59 | General Progress Note ---
Assessment/Plan Assessment/Plan S: " Sleepy" O: appears comfortable, still drowsy. Boyfriend in the room PHYSICAL EXAMINATION:GENERAL: Young female lying in bed, agitated and restless , unresponsive, not cooperative for exam. HEENT: Normocephalic and atraumatic. Pupil sluggish to light. Unable to assess oral mucosa. NECK: Supple. No lymphadenopathy. CARDIOVASCULAR: She is tachycardic. S1 and S2 heard. No murmur. LUNGS: She had diminished breathing sounds at the bases. Normal breathing effort. No wheezing or rhonchi.ABDOMEN: Soft, nontender, and nondistended. Normal bowel sounds. Lower abdomen surgical incision in place with intact wound. No dehiscence. No drainage. No significant erythema or pus.EXTREMITY: No edema. No cyanosis. Neruo: Delirious ASSESSMENT AND RECOMMENDATION: 1. Acute Encephalopathy: secondary to withdrawal 2- Substance Abuse, currently on rehab program\\ 3. UTI. We will send urine culture and start ceftriaxone empiric treatment. 2. Leukocytosis due to UTI and possibly dehydration, rule out sepsis. We will send blood culture and obtain chest x-ray to rule out pneumonia. We will start IV ceftriaxone empirically for now. We will monitor laboratories closely. 4. Rhabdomyolysis due to agitation and muscle straining with elevated CK level. Continue hydration and monitor CK level. 5. Psychosis. Continue psychiatric medications. Plan: current [facility] Subjective Allergies: Coded Allergies: No Known Allergies (Unverified , 11/14/17) Objective Last 24 Hour Vital Signs Date Time Temp Pulse Resp B/P (MAP) Pulse Ox O2 Delivery O2 Flow Rate FiO2 11/16/17 08:00 Room Air 11/16/17 08:00 66 11/16/17 08:00 98.5 105 20 129/79 (96) 99 98.5 11/16/17 06:58 98.5 11/16/17 06:28 98.5 11/16/17 04:00 Room Air 11/16/17 04:00 88 11/16/17 04:00 98.5 97 20 111/65 (80) 96 98.5 11/16/17 00:00 Room Air 11/16/17 00:00 110 11/16/17 00:00 98.0 76 22 119/65 (83) 96 98.0 7/8/18 20:00 94 11/15/17 20:00 Room Air 11/15/17 20:00 98.0 118 22 142/86 (104) 97 98.0 11/15/17 19:15 115 16 142/86 (104) 95 11/15/17 17:41 98.7 11/15/17 17:30 115 16 115/70 (85) 95 11/15/17 16:00 95 16 108/62 (77) 95 11/15/17 15:30 Room Air 11/15/17 15:25 98.7 111 16 136/89 (105) 97 98.7 11/15/17 15:15 98.1 100 22 113/57 97 Room Air 209.3 11/15/17 14:51 98.5 11/15/17 13:00 98.1 100 22 113/57 97 Room Air 98.1 11/15/17 11:00 97 22 101/57 97 Room Air Intake and Output 11/15/17 11/16/17 19:00 07:00 Intake Total 1290 ml 900 ml Output Total 400 ml Balance 890 ml 900 ml Intake Oral 0 ml IV Total 1290 ml 900 ml Output Urine Total 400 ml # Voids 1 # Bowel Movements 1 3 Laboratory Tests 11/16/17 09:45: White Blood Count 5.3#, Red Blood Count 3.93L, Hemoglobin 11.8L, Hematocrit 35.8L, Mean Corpuscular Volume 91, Mean Corpuscular Hemoglobin 30.1, Mean Corpuscular Hemoglobin Concent 33.0, Red Cell Distribution Width 12.3, Platelet Count 275, Mean Platelet Volume 7.2, Neutrophils (%) (Auto) 60.5, Lymphocytes (% ) (Auto) 31.3, Monocytes (%) (Auto) 7.5, Eosinophils (%) (Auto) 0.1, Basophils ( %) (Auto) 0.6, Sodium Level 141, Potassium Level 2.9L, Chloride Level 107, Carbon Dioxide Level 28, Anion Gap 6, Blood Urea Nitrogen 3L, Creatinine 0.6, Estimat Glomerular Filtration Rate > 60, Glucose Level 126H, Calcium Level 8.4L , Total Bilirubin 0.3, Aspartate Amino Transf (AST/SGOT) 235H, Alanine Aminotransferase (ALT/SGPT) 87H, Alkaline Phosphatase 63, Total Protein 6.6, Albumin 3.6, Globulin 3.0, Albumin/Globulin Ratio 1.2 Height (Feet): 5 Height (Inches): 1.00 Weight (Pounds): 125 Josefina Duke MD Nov 16, 2017 10:59
[2017-11-16] MEDS: DiphenhydrAMINE 50mg/ml Inj IVP PRN (11:35)
--- NOTE | 2017-11-16 11:35 | Consultation ---
History of Present Illness General Date patient seen: Nov 15, 2017 Chief Complaint: General Complaint Present Illness HPI 22-year-old, female with past medical history of OPIOID dependence, who has been on Suboxone for the last 2 weeks. the pt was confused in the er and was unable to provide hx. Apparently she got a Suboxone implant. The pt is had an adverse reaction. the pt became confused and severely agitated. Allergies: Coded Allergies: No Known Allergies (Unverified , 11/14/17) Medication History Scheduled Bupropion Sr* (Wellbutrin Sr*), 100 MG ORAL TWICE A DAY, (Reported) Doxepin Hcl (Doxepin Hcl*), 25 MG ORAL BEDTIME, (Reported) Gabapentin* (Gabapentin*), 100 MG ORAL THREE TIMES A DAY, (Reported) Sertraline Hcl* (Zoloft*), 100 MG PO DAILY, (Reported) Miscellaneous Medications Buprenorphine Hcl/Naloxone Hcl (Suboxone 12 Mg-3 Mg Sl Film), 1 EACH SL, ( Reported) Lamotrigine (Lamictal), 25 MG PO, (Reported) Naltrexone Hcl (Naltrexone Hcl), 5 GM MC, (Reported) Patient History Limited by: medical condition History Provided By: Patient, Medical Record, PMD Healthcare decision maker N Resuscitation status Full Code Advanced Directive on File Past Medical/Surgical History Past Medical/Surgical History: (1) Fever (2) Leukocytosis (3) UTI (urinary tract infection) (4) Psychosis (5) Rhabdomyolysis (6) Akathisia (7) Opiate withdrawal Review of Systems Psychiatric: Reports: prior hx, anxiety, depressed feelings, emotional problems Physical Exam General Appearance: no apparent distress, confused, agitated Last 24 Hour Vital Signs Date Time Temp Pulse Resp B/P (MAP) Pulse Ox O2 Delivery O2 Flow Rate FiO2 11/16/17 08:00 Room Air 11/16/17 08:00 66 11/16/17 08:00 98.5 105 20 129/79 (96) 99 98.5 11/16/17 06:58 98.5 11/16/17 06:28 98.5 11/16/17 04:00 Room Air 11/16/17 04:00 88 11/16/17 04:00 98.5 97 20 111/65 (80) 96 98.5 11/16/17 00:00 Room Air 11/16/17 00:00 110 11/16/17 00:00 98.0 76 22 119/65 (83) 96 98.0 11/15/17 20:00 94 11/15/17 20:00 Room Air 11/15/17 20:00 98.0 118 22 142/86 (104) 97 98.0 11/15/17 19:15 115 16 142/86 (104) 95 11/15/17 17:41 98.7 11/15/17 17:30 115 16 115/70 (85) 95 11/15/17 16:00 95 16 108/62 (77) 95 11/15/17 15:30 Room Air 11/15/17 15:25 98.7 111 16 136/89 (105) 97 98.7 11/15/17 15:15 98.1 100 22 113/57 97 Room Air 209.3 11/15/17 14:51 98.5 11/15/17 13:00 98.1 100 22 113/57 97 Room Air 98.1 Intake and Output 11/15/17 11/16/17 19:00 07:00 Intake Total 1290 ml 900 ml Output Total 400 ml Balance 890 ml 900 ml Intake Oral 0 ml IV Total 1290 ml 900 ml Output Urine Total 400 ml # Voids 1 # Bowel Movements 1 3 Laboratory Tests Test 11/16/17 09:45 White Blood Count 5.3 K/UL (4.8-10.8) # Red Blood Count 3.93 M/UL (4.20-5.40) L Hemoglobin 11.8 G/DL (12.0-16.0) L Hematocrit 35.8 % (37.0-47.0) L Mean Corpuscular Volume 91 FL (80-99) Mean Corpuscular Hemoglobin 30.1 PG (27.0-31.0) Mean Corpuscular Hemoglobin Concent 33.0 G/DL (32.0-36.0) Red Cell Distribution Width 12.3 % (11.6-14.8) Platelet Count 275 K/UL (150-450) Mean Platelet Volume 7.2 FL (6.5-10.1) Neutrophils (%) (Auto) 60.5 % (45.0-75.0) Lymphocytes (%) (Auto) 31.3 % (20.0-45.0) Monocytes (%) (Auto) 7.5 % (1.0-10.0) Eosinophils (%) (Auto) 0.1 % (0.0-3.0) Basophils (%) (Auto) 0.6 % (0.0-2.0) Sodium Level 141 MMOL/L (136-145) Potassium Level 2.9 MMOL/L (3.5-5.1) L Chloride Level 107 MMOL/L (98-107) Carbon Dioxide Level 28 MMOL/L (21-32) Anion Gap 6 mmol/L (5-15) Blood Urea Nitrogen 3 mg/dL (7-18) L Creatinine 0.6 MG/DL (0.55-1.30) Estimat Glomerular Filtration Rate > 60 mL/min (>60) Glucose Level 126 MG/DL (74-106) H Calcium Level 8.4 MG/DL (8.5-10.1) L Total Bilirubin 0.3 MG/DL (0.2-1.0) Aspartate Amino Transf (AST/SGOT) 235 U/L (15-37) H Alanine Aminotransferase (ALT/SGPT) 87 U/L (12-78) H Alkaline Phosphatase 63 U/L (46-116) Total Creatine Kinase Pending Total Protein 6.6 G/DL (6.4-8.2) Albumin 3.6 G/DL (3.4-5.0) Globulin 3.0 g/dL Albumin/Globulin Ratio 1.2 (1.0-2.7) Height (Feet): 5 Height (Inches): 1.00 Weight (Pounds): 125 Medications Current Medications Medications (Trade) Dose Ordered Sig/Scar Route PRN Reason Start Time Stop Time Status Last Admin Dose Admin Ceftriaxone Sodium 1 gm/ Dextrose 110 ml @ 220 mls/hr Q24HRS IVPB 11/15/17 14:00 11/22/17 13:59 11/15/17 14:26 Diphenhydramine HCl (Benadryl) 25 mg Q8H PRN IVP Agitation 11/15/17 15:45 12/15/17 15:44 11/15/17 20:35 Haloperidol Lactate (Haldol) 5 mg Q12H PRN IM Agitation 11/15/17 15:45 12/15/17 15:44 Heparin Sodium (Porcine) (Heparin 5000 units/ml) 5,000 units EVERY 12 HOURS SUBQ 11/15/17 21:00 12/15/17 20:59 11/16/17 08:25 Lorazepam (Ativan 2mg/ml 1ml) 1 mg Q8H PRN IV For Anxiety/agitation 11/15/17 15:45 11/22/17 15:44 11/16/17 08:24 Morphine Sulfate (Morphine Sulfate) 3 mg Q8HR PRN IVP Severe Pain (Pain Scale 7-10) 11/15/17 15:45 11/22/17 15:44 11/16/17 06:28 Pantoprazole (Protonix) 40 mg DAILY ORAL 11/16/17 09:00 12/16/17 08:59 11/16/17 08:24 Potassium Chloride (K-Dur) 40 meq DAILY ORAL 11/16/17 11:00 12/16/17 10:59 Sodium Bicarbonate 150 ml/Dextrose 1,150 ml @ 150 mls/hr Q7H40M IV 11/15/17 17:30 12/15/17 17:29 11/16/17 08:50 Assessment/Plan Status: unchanged Assessment/Plan Encephalopathy drug induced Agitation Opioid dependence -rec to avoid prescribing opioids -rec clonidine and symptomatic treatment -rec to dc Milly March MD Nov 16, 2017 11:35
[2017-11-16 12:00] VITALS: BP 118/85
--- NOTE | 2017-11-16 12:31 | Diagnostic Imaging Report ---
Indication: Dyspnea Comparison: None A single view chest radiograph was obtained. Findings: Cardiomediastinal appearance is within normal limits for age. Pulmonary vascularity is appropriate. The diaphragmatic contour is smooth and costophrenic angles are sharp. No pleural effusions are identified. The bones are unremarkable. Impression: No acute findings
[2017-11-16 12:39] LABS: CREATINE KINASE > 10000 U/L (26-308)
[2017-11-16] MEDS: cefTRIAXone 1 GM in D5W 110 ML IVPB SCH (14:00)
--- NOTE | 2017-11-16 15:47 | Infectious Diseases Prog Note ---
Assessment/Plan Problems: (1) UTI (urinary tract infection) Assessment & Plan: continue ceftriaxon empirically pending urine culture (2) Leukocytosis Assessment & Plan: due to UTI and dehydration, rule out sepsis , await blood culture, CXR ruled out pneumonia , continue ceftriaxon empirically (3) Fever Assessment & Plan: await blood culture to rule out sepsis , CXR showed no pneumonia , continue tylenol (4) Rhabdomyolysis Assessment & Plan: with elevated CK, continue hydration and monitor CK level (5) Psychosis Assessment & Plan: continue psych meds , psychiatrist is following Subjective Constitutional: Reports: no symptoms HEENT: Reports: no symptoms Respiratory: Reports: no symptoms Breasts: Reports: no symptoms Cardiovascular: Reports: no symptoms Gastrointestinal/Abdominal: Reports: no symptoms Genitourinary: Reports: no symptoms Neurologic: Reports: no symptoms Psychiatric: Reports: no symptoms Skin: Reports: no symptoms Endocrine: Reports: no symptoms Hematologic: Reports: no symptoms Musculoskeletal: Reports: no symptoms Allergies: Coded Allergies: No Known Allergies (Unverified , 11/14/17) Subjective she was more awake and coherent , responds well to verbal commands. boyfriend at bedside Objective Vital Signs Last 24 Hour Vital Signs Date Time Temp Pulse Resp B/P (MAP) Pulse Ox O2 Delivery O2 Flow Rate FiO2 11/16/17 12:00 118/85 (96) 11/16/17 12:00 Room Air 11/16/17 08:00 Room Air 11/16/17 08:00 66 11/16/17 08:00 98.5 105 20 129/79 (96) 99 98.5 11/16/17 06:58 98.5 11/16/17 06:28 98.5 11/16/17 04:00 Room Air 11/16/17 04:00 88 11/16/17 04:00 98.5 97 20 111/65 (80) 96 98.5 11/16/17 00:00 Room Air 11/16/17 00:00 110 11/16/17 00:00 98.0 76 22 119/65 (83) 96 98.0 11/15/17 20:00 94 11/15/17 20:00 Room Air 11/15/17 20:00 98.0 118 22 142/86 (104) 97 98.0 11/15/17 19:15 115 16 142/86 (104) 95 11/15/17 17:41 98.7 11/15/17 17:30 115 16 115/70 (85) 95 11/15/17 16:00 95 16 108/62 (77) 95 Height (Feet): 5 Height (Inches): 1.00 Weight (Pounds): 125 General Appearance: WD/WN, no acute distress HEENT: normocephalic, atraumatic, anicteric, mucous membranes moist, PERRL, pharynx normal, supple, no JVD Respiratory/Chest: chest wall non-tender, lungs clear, normal breath sounds, no respiratory distress, no accessory muscle use Cardiovascular: normal peripheral pulses, normal rate, regular rhythm, no gallop/murmur, no JVD Abdomen: normal bowel sounds, soft, non tender, no organomegaly, non distended , no mass, no scars Extremities: no cyanosis, no clubbing Skin: no rash, no lesions, no ulcers Neurologic/Psychiatric: alert, oriented x 3, responsive Lymphatic: no neck adenopathy, no groin adenopathy Musculoskeletal: normal muscle bulk, no effusion Laboratory Tests Test 11/16/17 09:45 White Blood Count 5.3 K/UL (4.8-10.8) # Red Blood Count 3.93 M/UL (4.20-5.40) L Hemoglobin 11.8 G/DL (12.0-16.0) L Hematocrit 35.8 % (37.0-47.0) L Mean Corpuscular Volume 91 FL (80-99) Mean Corpuscular Hemoglobin 30.1 PG (27.0-31.0) Mean Corpuscular Hemoglobin Concent 33.0 G/DL (32.0-36.0) Red Cell Distribution Width 12.3 % (11.6-14.8) Platelet Count 275 K/UL (150-450) Mean Platelet Volume 7.2 FL (6.5-10.1) Neutrophils (%) (Auto) 60.5 % (45.0-75.0) Lymphocytes (%) (Auto) 31.3 % (20.0-45.0) Monocytes (%) (Auto) 7.5 % (1.0-10.0) Eosinophils (%) (Auto) 0.1 % (0.0-3.0) Basophils (%) (Auto) 0.6 % (0.0-2.0) Sodium Level 141 MMOL/L (136-145) Potassium Level 2.9 MMOL/L (3.5-5.1) L Chloride Level 107 MMOL/L (98-107) Carbon Dioxide Level 28 MMOL/L (21-32) Anion Gap 6 mmol/L (5-15) Blood Urea Nitrogen 3 mg/dL (7-18) L Creatinine 0.6 MG/DL (0.55-1.30) Estimat Glomerular Filtration Rate > 60 mL/min (>60) Glucose Level 126 MG/DL (74-106) H Calcium Level 8.4 MG/DL (8.5-10.1) L Total Bilirubin 0.3 MG/DL (0.2-1.0) Aspartate Amino Transf (AST/SGOT) 235 U/L (15-37) H Alanine Aminotransferase (ALT/SGPT) 87 U/L (12-78) H Alkaline Phosphatase 63 U/L (46-116) Total Creatine Kinase > 92038 U/L (26-308) H Total Protein 6.6 G/DL (6.4-8.2) Albumin 3.6 G/DL (3.4-5.0) Globulin 3.0 g/dL Albumin/Globulin Ratio 1.2 (1.0-2.7) Current Medications Medications (Trade) Dose Ordered Sig/Scar Route PRN Reason Start Time Stop Time Status Last Admin Dose Admin Ceftriaxone Sodium 1 gm/ Dextrose 110 ml @ 220 mls/hr Q24HRS IVPB 11/15/17 14:00 11/22/17 13:59 11/15/17 14:26 Diphenhydramine HCl (Benadryl) 25 mg Q8H PRN IVP Agitation 11/15/17 15:45 12/15/17 15:44 11/16/17 11:35 Haloperidol Lactate (Haldol) 5 mg Q12H PRN IM Agitation 11/15/17 15:45 12/15/17 15:44 Heparin Sodium (Porcine) (Heparin 5000 units/ml) 5,000 units EVERY 12 HOURS SUBQ 11/15/17 21:00 12/15/17 20:59 11/16/17 08:25 Lorazepam (Ativan 2mg/ml 1ml) 1 mg Q8H PRN IV For Anxiety/agitation 11/15/17 15:45 11/22/17 15:44 11/16/17 08:24 Morphine Sulfate (Morphine Sulfate) 3 mg Q8HR PRN IVP Severe Pain (Pain Scale 7-10) 11/15/17 15:45 11/22/17 15:44 11/16/17 06:28 Pantoprazole (Protonix) 40 mg DAILY ORAL 11/16/17 09:00 12/16/17 08:59 11/16/17 08:24 Potassium Chloride (K-Dur) 40 meq DAILY ORAL 11/16/17 11:00 12/16/17 10:59 11/16/17 11:00 Sodium Bicarbonate 150 ml/Dextrose 1,150 ml @ 150 mls/hr Q7H40M IV 11/15/17 17:30 12/15/17 17:29 11/16/17 08:50 Maynor Charles M.D. Nov 16, 2017 15:47
[2017-11-16 16:00] VITALS: BP 122/78
[2017-11-16] MEDS ORDERED: Haloperidol 5mg/ml Inj IM PRN (17:45)
[2017-11-16] MEDS ORDERED: DiphenhydrAMINE 50mg/ml Inj IVP PRN (19:30)
[2017-11-16 20:00] VITALS: BP 122/78
[2017-11-17] VITALS: BP 121/82
[2017-11-17] MEDS: Morphine Sulfate 4mg/ml Inj (IV USE ONLY) IVP PRN ×2 (00:14→09:26)
[2017-11-17 04:00] VITALS: BP 135/106
[2017-11-17] MEDS: LORazepam Inj 2mg/ml 1ml IV PRN (04:31)
[2017-11-17 06:43] LABS: BASOPHILS % (AUTO) 0.7 % (0.0-2.0); EOSINOPHILS % (AUTO) 0.5 % (0.0-3.0); HEMATOCRIT 33.8 % (37.0-47.0); HEMOGLOBIN 11.6 G/DL (12.0-16.0); LYMPHOCYTES % (AUTO) 25.1 % (20.0-45.0); MEAN CORPUSCULAR VOLUME 91 FL (80-99); MONOCYTES % (AUTO) 7.8 % (1.0-10.0); NEUTROPHILS % (AUTO) 65.9 % (45.0-75.0); PLATELET COUNT 246 K/UL (150-450); RED BLOOD COUNT 3.73 M/UL (4.20-5.40); RED CELL DISTRIBUTION WIDTH 11.9 % (11.6-14.8); WHITE BLOOD COUNT 7.9 K/UL (4.8-10.8)
[2017-11-17 06:56] LABS: ALANINE AMINOTRANSFERASE 95 U/L (12-78); ALBUMIN 3.4 G/DL (3.4-5.0); ALBUMIN/GLOBULIN RATIO 1.2 (1.0-2.7); ALKALINE PHOSPHATASE 59 U/L (46-116); ANION GAP 8 mmol/L (5-15); ASPARTATE AMINO TRANSFERASE 198 U/L (15-37); BILIRUBIN,TOTAL 0.2 MG/DL (0.2-1.0); BLOOD UREA NITROGEN 4 mg/dL (7-18); CALCIUM 8.2 MG/DL (8.5-10.1); CARBON DIOXIDE 29 MMOL/L (21-32); CHLORIDE 104 MMOL/L (98-107); CREATININE 0.6 MG/DL (0.55-1.30); POTASSIUM 2.8 MMOL/L (3.5-5.1); SODIUM 141 MMOL/L (136-145)
[2017-11-17 08:00] VITALS: BP 104/71
[2017-11-17] MEDS ORDERED: cefTRIAXone 1 GM in D5W 110 ML IVPB SCH (09:00)
[2017-11-17] MEDS: Sodium Bicarbonate 150 ML in D5W 1000ml 1,000 ML IV SCH ×2 (09:20→17:00)
[2017-11-17] MEDS: Heparin 5000 units/ml inj SUBQ SCH (09:23)
--- NOTE | 2017-11-17 11:01 | General Progress Note ---
Assessment/Plan Assessment/Plan Encephalopathy drug induced Agitation Opioid dependence -rec to avoid prescribing opioids -rec clonidine and symptomatic treatment -rec to dc Ativan -rec to dc morphine Subjective Date patient seen: Nov 16, 2017 Neurologic/Psychiatric: Reports: anxiety, depressed, emotional problems Allergies: Coded Allergies: No Known Allergies (Unverified , 11/14/17) Subjective The pt wanted to leave [facility]. the pt is inpatient however more alert. Objective Last 24 Hour Vital Signs Date Time Temp Pulse Resp B/P (MAP) Pulse Ox O2 Delivery O2 Flow Rate FiO2 11/17/17 09:00 Room Air 11/17/17 08:00 97.6 76 20 104/71 (82) 97 97.6 76 11/17/17 04:00 97.7 65 19 135/106 (116) 100 97.7 11/17/17 00:00 97.3 79 18 121/82 (95) 100 97.3 11/16/17 20:00 Room Air 11/16/17 20:00 98.8 95 18 122/78 (93) 99 98.8 11/16/17 16:00 Room Air 11/16/17 16:00 98.8 95 18 122/78 (93) 99 98.8 11/16/17 12:00 118/85 (96) 11/16/17 12:00 Room Air Intake and Output 11/16/17 11/17/17 19:00 07:00 Intake Total 1050 ml 1290 ml Output Total 500 ml Balance 550 ml 1290 ml Intake Oral 0 ml 240 ml IV Total 1050 ml 1050 ml Output Urine Total 500 ml # Voids 1 2 # Bowel Movements 3 1 Laboratory Tests 11/17/17 06:05: White Blood Count 7.9, Red Blood Count 3.73L, Hemoglobin 11.6L, Hematocrit 33.8L , Mean Corpuscular Volume 91, Mean Corpuscular Hemoglobin 31.1H, Mean Corpuscular Hemoglobin Concent 34.3, Red Cell Distribution Width 11.9, Platelet Count 246, Mean Platelet Volume 7.0, Neutrophils (%) (Auto) 65.9, Lymphocytes (% ) (Auto) 25.1, Monocytes (%) (Auto) 7.8, Eosinophils (%) (Auto) 0.5, Basophils ( %) (Auto) 0.7, Sodium Level 141, Potassium Level 2.8L, Chloride Level 104, Carbon Dioxide Level 29, Anion Gap 8, Blood Urea Nitrogen 4L, Creatinine 0.6, Estimat Glomerular Filtration Rate > 60, Glucose Level 106, Calcium Level 8.2L, Total Bilirubin 0.2, Aspartate Amino Transf (AST/SGOT) 198H, Alanine Aminotransferase (ALT/SGPT) 95H, Alkaline Phosphatase 59, Total Protein 6.3L, Albumin 3.4, Globulin 2.9, Albumin/Globulin Ratio 1.2 Height (Feet): 5 Height (Inches): 1.00 Weight (Pounds): 126 General Appearance: no apparent distress, alert Neurologic: oriented x 3, responsive, depressed affect Milly Bailey MD Nov 17, 2017 11:01
--- NOTE | 2017-11-17 11:07 | General Progress Note ---
Assessment/Plan Status: stable, progressing Assessment/Plan Encephalopathy drug induced Agitation Opioid dependence -rec to avoid prescribing opioids -rec clonidine and symptomatic treatment - dc Ativan -rec to dc morphine -start Neurontin Subjective Date patient seen: Nov 17, 2017 Neurologic/Psychiatric: Reports: anxiety, depressed, emotional problems Allergies: Coded Allergies: No Known Allergies (Unverified , 11/14/17) Subjective The pt is calm low potassium. the pt is c/o pain. the pts boyfriend in the room. the pt is asking for iv ativan and morphine. Objective Last 24 Hour Vital Signs Date Time Temp Pulse Resp B/P (MAP) Pulse Ox O2 Delivery O2 Flow Rate FiO2 11/17/17 09:00 Room Air 11/17/17 08:00 97.6 76 20 104/71 (82) 97 97.6 76 11/17/17 04:00 97.7 65 19 135/106 (116) 100 97.7 11/17/17 00:00 97.3 79 18 121/82 (95) 100 97.3 11/16/17 20:00 Room Air 11/16/17 20:00 98.8 95 18 122/78 (93) 99 98.8 11/16/17 16:00 Room Air 11/16/17 16:00 98.8 95 18 122/78 (93) 99 98.8 11/16/17 12:00 118/85 (96) 11/16/17 12:00 Room Air Intake and Output 11/16/17 11/17/17 19:00 07:00 Intake Total 1050 ml 1290 ml Output Total 500 ml Balance 550 ml 1290 ml Intake Oral 0 ml 240 ml IV Total 1050 ml 1050 ml Output Urine Total 500 ml # Voids 1 2 # Bowel Movements 3 1 Laboratory Tests 11/17/17 06:05: White Blood Count 7.9, Red Blood Count 3.73L, Hemoglobin 11.6L, Hematocrit 33.8L , Mean Corpuscular Volume 91, Mean Corpuscular Hemoglobin 31.1H, Mean Corpuscular Hemoglobin Concent 34.3, Red Cell Distribution Width 11.9, Platelet Count 246, Mean Platelet Volume 7.0, Neutrophils (%) (Auto) 65.9, Lymphocytes (% ) (Auto) 25.1, Monocytes (%) (Auto) 7.8, Eosinophils (%) (Auto) 0.5, Basophils ( %) (Auto) 0.7, Sodium Level 141, Potassium Level 2.8L, Chloride Level 104, Carbon Dioxide Level 29, Anion Gap 8, Blood Urea Nitrogen 4L, Creatinine 0.6, Estimat Glomerular Filtration Rate > 60, Glucose Level 106, Calcium Level 8.2L, Total Bilirubin 0.2, Aspartate Amino Transf (AST/SGOT) 198H, Alanine Aminotransferase (ALT/SGPT) 95H, Alkaline Phosphatase 59, Total Protein 6.3L, Albumin 3.4, Globulin 2.9, Albumin/Globulin Ratio 1.2 Height (Feet): 5 Height (Inches): 1.00 Weight (Pounds): 126 General Appearance: WD/WN, no apparent distress, alert Neurologic: oriented x 3, responsive, depressed affect Milly Bailey MD Nov 17, 2017 11:07
[2017-11-17] MEDS ORDERED: Sertraline 50mg tab ORAL SCH (11:30)
[2017-11-17 12:00] VITALS: BP 124/88
[2017-11-17] MEDS ORDERED: LORazepam 1mg tab ORAL PRN ×3 (12:15→13:02)
[2017-11-17 16:00] VITALS: BP 114/72
--- NOTE | 2017-11-17 16:32 | Infectious Diseases Prog Note ---
Assessment/Plan Problems: (1) UTI (urinary tract infection) Assessment & Plan: continue ceftriaxon empirically for five days (2) Leukocytosis Assessment & Plan: due to UTI and dehydration, rule out sepsis , await blood culture, CXR ruled out pneumonia , continue ceftriaxon empirically (3) Fever Assessment & Plan: await blood culture to rule out sepsis , CXR showed no pneumonia , continue tylenol (4) Rhabdomyolysis Assessment & Plan: with elevated CK, continue hydration and monitor CK level (5) Psychosis Assessment & Plan: continue psych meds , psychiatrist is following Subjective Constitutional: Reports: no symptoms HEENT: Reports: no symptoms Respiratory: Reports: no symptoms Breasts: Reports: no symptoms Cardiovascular: Reports: no symptoms Gastrointestinal/Abdominal: Reports: bloating, other - pain Genitourinary: Reports: no symptoms Neurologic: Reports: no symptoms Psychiatric: Reports: no symptoms Skin: Reports: no symptoms Endocrine: Reports: no symptoms Hematologic: Reports: no symptoms Musculoskeletal: Reports: no symptoms Allergies: Coded Allergies: No Known Allergies (Unverified , 11/14/17) Subjective she was awake and coherent , responds well to verbal commands. denied any headache or blurry vision Objective Vital Signs Last 24 Hour Vital Signs Date Time Temp Pulse Resp B/P (MAP) Pulse Ox O2 Delivery O2 Flow Rate FiO2 11/17/17 16:00 97.0 69 18 114/72 (86) 97 97.0 11/17/17 12:00 97.8 83 18 124/88 (100) 100 97.8 11/17/17 09:00 Room Air 11/17/17 08:00 97.6 76 20 104/71 (82) 97 97.6 76 11/17/17 04:00 97.7 65 19 135/106 (116) 100 97.7 11/17/17 00:00 97.3 79 18 121/82 (95) 100 97.3 11/16/17 20:00 Room Air 11/16/17 20:00 98.8 95 18 122/78 (93) 99 98.8 Height (Feet): 5 Height (Inches): 1.00 Weight (Pounds): 126 General Appearance: WD/WN, no acute distress HEENT: normocephalic, atraumatic, anicteric, mucous membranes moist, PERRL Respiratory/Chest: chest wall non-tender, lungs clear, normal breath sounds, no respiratory distress, no accessory muscle use Cardiovascular: normal peripheral pulses, normal rate, regular rhythm, no gallop/murmur, no JVD Abdomen: normal bowel sounds, soft, non tender, no organomegaly, non distended , no mass, no scars Extremities: no cyanosis, no clubbing Skin: no rash, no lesions, no ulcers Neurologic/Psychiatric: alert, oriented x 3, responsive Lymphatic: no neck adenopathy, no groin adenopathy Musculoskeletal: normal muscle bulk, no effusion Microbiology Date/Time Source Procedure Growth Status 11/15/17 15:20 Blood Blood Culture - Preliminary NO GROWTH AFTER 24 HOURS Resulted 11/15/17 15:15 Blood Blood Culture - Preliminary NO GROWTH AFTER 24 HOURS Resulted 11/15/17 11:30 Nasal Nares MRSA Culture - Final NO METHICILLIN RESISTANT STAPH AUREUS... Complete 11/15/17 11:30 Rectum VRE Culture - Final NO VANCOMYCIN RESISTANT ENTEROCOCCUS ... Complete 11/15/17 11:30 Rectum - Final NO CARBAPENEM-RESISTANT ENTEROBACTERI... Complete Laboratory Tests Test 11/17/17 06:05 11/17/17 16:00 White Blood Count 7.9 K/UL (4.8-10.8) Red Blood Count 3.73 M/UL (4.20-5.40) L Hemoglobin 11.6 G/DL (12.0-16.0) L Hematocrit 33.8 % (37.0-47.0) L Mean Corpuscular Volume 91 FL (80-99) Mean Corpuscular Hemoglobin 31.1 PG (27.0-31.0) H Mean Corpuscular Hemoglobin Concent 34.3 G/DL (32.0-36.0) Red Cell Distribution Width 11.9 % (11.6-14.8) Platelet Count 246 K/UL (150-450) Mean Platelet Volume 7.0 FL (6.5-10.1) Neutrophils (%) (Auto) 65.9 % (45.0-75.0) Lymphocytes (%) (Auto) 25.1 % (20.0-45.0) Monocytes (%) (Auto) 7.8 % (1.0-10.0) Eosinophils (%) (Auto) 0.5 % (0.0-3.0) Basophils (%) (Auto) 0.7 % (0.0-2.0) Sodium Level 141 MMOL/L (136-145) Potassium Level 2.8 MMOL/L (3.5-5.1) L Pending Chloride Level 104 MMOL/L (98-107) Carbon Dioxide Level 29 MMOL/L (21-32) Anion Gap 8 mmol/L (5-15) Blood Urea Nitrogen 4 mg/dL (7-18) L Creatinine 0.6 MG/DL (0.55-1.30) Estimat Glomerular Filtration Rate > 60 mL/min (>60) Glucose Level 106 MG/DL (74-106) Calcium Level 8.2 MG/DL (8.5-10.1) L Total Bilirubin 0.2 MG/DL (0.2-1.0) Aspartate Amino Transf (AST/SGOT) 198 U/L (15-37) H Alanine Aminotransferase (ALT/SGPT) 95 U/L (12-78) H Alkaline Phosphatase 59 U/L (46-116) Total Protein 6.3 G/DL (6.4-8.2) L Albumin 3.4 G/DL (3.4-5.0) Globulin 2.9 g/dL Albumin/Globulin Ratio 1.2 (1.0-2.7) Current Medications Medications (Trade) Dose Ordered Sig/Scar Route PRN Reason Start Time Stop Time Status Last Admin Dose Admin Ceftriaxone Sodium 1 gm/ Dextrose 110 ml @ 220 mls/hr DAILY IVPB 11/17/17 09:00 11/24/17 08:59 11/17/17 09:42 Gabapentin (Neurontin) 600 mg TIDPRN PRN ORAL anxiety 11/17/17 11:00 12/17/17 10:59 Haloperidol Lactate (Haldol) 5 mg Q12H PRN IM Agitation 11/16/17 17:45 12/16/17 17:44 Heparin Sodium (Porcine) (Heparin 5000 units/ml) 5,000 units EVERY 12 HOURS SUBQ 11/16/17 21:00 12/15/17 20:59 11/17/17 09:23 Lorazepam (Ativan) 1 mg Q6H PRN ORAL For Anxiety 11/17/17 13:02 11/24/17 13:01 11/17/17 13:23 Morphine Sulfate (Morphine Sulfate) 2 mg Q8HR PRN IVP Severe Pain (Pain Scale 7-10) 11/17/17 18:00 11/24/17 17:59 Nicotine (Nicoderm) 1 patch Q24H TDERMAL 11/17/17 14:30 12/17/17 14:29 11/17/17 16:26 Pantoprazole (Protonix) 40 mg DAILY ORAL 11/17/17 09:00 12/16/17 08:59 11/17/17 09:21 Potassium Chloride (K-Dur) 40 meq DAILY ORAL 11/17/17 09:00 12/16/17 10:59 11/17/17 09:22 Sertraline HCl (Zoloft) 50 mg DAILY ORAL 11/18/17 09:00 12/18/17 08:59 Sodium Bicarbonate 150 ml/Dextrose 1,150 ml @ 150 mls/hr Q7H40M IV 11/16/17 18:00 12/16/17 17:59 11/16/17 23:10 Maynor Charles M.D. Nov 17, 2017 16:32
--- NOTE | 2017-11-17 16:48 | General Progress Note ---
Assessment/Plan Assessment/Plan S: " can I go home " O: appears comfortable, awake and alert. Boyfriend in the room PHYSICAL EXAMINATION:GENERAL: Young female lying in bed, agitated and restless , unresponsive, not cooperative for exam. HEENT: Normocephalic and atraumatic. Pupil sluggish to light. Unable to assess oral mucosa. NECK: Supple. No lymphadenopathy. CARDIOVASCULAR: She is tachycardic. S1 and S2 heard. No murmur. LUNGS: She had diminished breathing sounds at the bases. Normal breathing effort. No wheezing or rhonchi.ABDOMEN: Soft, nontender, and nondistended. Normal bowel sounds. Lower abdomen surgical incision in place with intact wound. No dehiscence. No drainage. No significant erythema or pus.EXTREMITY: No edema. No cyanosis. Neruo: Delirious ASSESSMENT AND RECOMMENDATION: 1. Acute Encephalopathy: secondary to withdrawal 2- Substance Abuse, currently on rehab program\\ 3. UTI. We will send urine culture and start ceftriaxone empiric treatment. 2. Leukocytosis due to UTI and possibly dehydration, rule out sepsis. We will send blood culture and obtain chest x-ray to rule out pneumonia. We will start IV ceftriaxone empirically for now. We will monitor laboratories closely. 4. Rhabdomyolysis due to agitation and muscle straining with elevated CK level. Continue hydration and monitor CK level. 5. Psychosis. Continue psychiatric medications. Plan: Normal Potassium level Ok to fu as o/p Subjective Allergies: Coded Allergies: No Known Allergies (Unverified , 11/14/17) Objective Last 24 Hour Vital Signs Date Time Temp Pulse Resp B/P (MAP) Pulse Ox O2 Delivery O2 Flow Rate FiO2 11/17/17 16:00 97.0 69 18 114/72 (86) 97 97.0 11/17/17 12:00 97.8 83 18 124/88 (100) 100 97.8 11/17/17 09:00 Room Air 11/17/17 08:00 97.6 76 20 104/71 (82) 97 97.6 76 11/17/17 04:00 97.7 65 19 135/106 (116) 100 97.7 11/17/17 00:00 97.3 79 18 121/82 (95) 100 97.3 11/16/17 20:00 Room Air 11/16/17 20:00 98.8 95 18 122/78 (93) 99 98.8 Intake and Output 11/16/17 11/17/17 19:00 07:00 Intake Total 1050 ml 1290 ml Output Total 500 ml Balance 550 ml 1290 ml Intake Oral 0 ml 240 ml IV Total 1050 ml 1050 ml Output Urine Total 500 ml # Voids 1 2 # Bowel Movements 3 1 Laboratory Tests 11/17/17 06:05: White Blood Count 7.9, Red Blood Count 3.73L, Hemoglobin 11.6L, Hematocrit 33.8L , Mean Corpuscular Volume 91, Mean Corpuscular Hemoglobin 31.1H, Mean Corpuscular Hemoglobin Concent 34.3, Red Cell Distribution Width 11.9, Platelet Count 246, Mean Platelet Volume 7.0, Neutrophils (%) (Auto) 65.9, Lymphocytes (% ) (Auto) 25.1, Monocytes (%) (Auto) 7.8, Eosinophils (%) (Auto) 0.5, Basophils ( %) (Auto) 0.7, Sodium Level 141, Potassium Level 2.8L, Chloride Level 104, Carbon Dioxide Level 29, Anion Gap 8, Blood Urea Nitrogen 4L, Creatinine 0.6, Estimat Glomerular Filtration Rate > 60, Glucose Level 106, Calcium Level 8.2L, Total Bilirubin 0.2, Aspartate Amino Transf (AST/SGOT) 198H, Alanine Aminotransferase (ALT/SGPT) 95H, Alkaline Phosphatase 59, Total Protein 6.3L, Albumin 3.4, Globulin 2.9, Albumin/Globulin Ratio 1.2 11/17/17 16:00: Potassium Level 3.6 Height (Feet): 5 Height (Inches): 1.00 Weight (Pounds): 126 Josefina Duke MD Nov 17, 2017 16:48
[2017-11-17] MEDS ORDERED: Morphine Sulfate 2mg/ml Inj(IV/IM USE ONLY) IVP PRN (18:00)
[2017-11-18] MEDS ORDERED: Sertraline 50mg tab ORAL SCH (09:00)
--- NOTE | 2017-11-19 11:17 | Discharge Summary ---
Discharge Summary Discharge Summary _ DATE OF ADMISSION: 11/15/2017 DATE OF DISCHARGE: 11/17/2017 REASON FOR ADMISSION: 22 years old female with history of substance-abuse , on rehabilitation program, status post naltrexone implantation, on Subuxone for the last 2 weeks , was brought by boyfriend due to increased agitation, nausea and psychosis. She became restless with akathisia while at home Vital signs revealed tachycardia ,pulse oximetry was stable on room air Urinalysis revealed positive leukocyte esterase . CK over 10,000 WBC 12.1 AST 200 ALT 54 urine toxicology screen was positive for marijuana Patient admitted with diagnoses of acute encephalopathy, substance-abuse, possible urinary tract infection, leukocytosis, rhabdomyolysis, psychosis. CONSULTANTS: ID specialist psychiatrist [facility]SE: Patient admitted. Patient started on aggressive IV hydration. Renal parameters and electrolytes were closely monitored, electrolytes corrected as needed ,nephrotoxins avoided . LFT were closely monitored . Psychiatrist seen and evaluated patient . She recommended to avoid prescribing narcotics, continue clonidine and started on Neurontin. Patient was slowly progressing and improving. Continue rehabilitation program as outpatient. Patient was on empiric antibiotic for possible urinary tract infection . Urine culture came back negative. ID specialist followed and recommended to complete the course of empiric antibiotic. Leukocytosis resolved. Leukocytosis was likely reactive secondary to dehydration and possible dfue to UTI. Patient clinically improved and was stable for discharge home with outpatient follow-up with rehabilitation program and primary care provider FINAL DIAGNOSES: Acute encephalopathy secondary to withdrawal Substance-abuse Leukocytosis, likely due to on dehydration and possible UTI -resolved Rhabdomyolysis Opiate dependency Agitation Hypokalemia Possible UTI DISCHARGE MEDICATIONS: See Medication Reconciliation list. DISCHARGE INSTRUCTIONS: Patient was discharged home . Follow up with outpatient rehabilitation program. I have been assigned to dictate discharge summary for this account. I was not involved in the patient's management. Lisy Vela NP Nov 19, 2017 11:17
== END 2017-11-17 17:41 | disposition home or self-care (01) | DRG 896 ==
LOC: EMR 22:43 → EDBEDREQ 11-15 08:13 → ICU 11-15 14:11 → 2W 11-15 17:23 → 4E 11-16 17:35
DX: F11.23 Opioid dependence with withdrawal (principal); G93.40 Encephalopathy, unspecified; N39.0 Urinary tract infection, site not specified; M62.82 Rhabdomyolysis; F29 Unspecified psychosis not due to a substance or known physiological condition; R45.1 Restlessness and agitation; T50.7X5A Adverse effect of analeptics and opioid receptor antagonists, initial encounter; E86.0 Dehydration; E87.6 Hypokalemia
CPT/HCPCS: 36415; 70450; 71045; 80053; 80307; 81001; 81025; 82550; 83605; 84132; 84443; 84484; 85007; 85025; 87040; 87081; 99285; J2250; J8499